=== PATIENT | female | born 1995 | race Caucasian/White ===

== ENCOUNTER 2018-08-13 11:39 | Emergency (ER) | payer OTHER ==
[2018-08-13 11:43] VITALS: TEMP 98.5; BMI 22.8
--- NOTE | 2018-08-13 12:01 | PDOC ---
Attending Attestation - Resident Resident Name: José Miguel Allen - ED Attending Attestation I have performed the following: I have examined & evaluated the patient, The case was reviewed & discussed with the resident, I agree w/resident's findings & plan, Exceptions are as noted - HPI HPI: 08/13/18 11:59 22y F present with abdominal pain that radiates across the abd and to the back. The pain is eposidic, and comes in waves, lasting fora bout a minute at a time. Pt notse the pain started on sunday in the lower abdomen and made her nauesus, and she vomited and had a bowel movement wtih resolution of the symptoms until sunday, since then the pain has come and gone intermittently. Pt notes the pain is diffuse across her lower abdomen, but does seem slightly worse in the llq. Sems to worsen when she eats or drinks. Pt notse nbnb vomiting, denies any diarrhea, melena, bpr. pt does note some mild dysuria/frequency. no associated fever or chills. no known sick contacts. 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 HEAD: Normocephalic, atraumatic. EYES: extraocular movements intact, sclera anicteric, conjunctiva clear. ENT: Normal voice, Moist mucous membranes. NECK: Normal range of motion, supple LUNGS: Breath sounds equal, clear to auscultation bilaterally. No wheezes, no rhonchi, no rales. HEART: Regular rate and rhythm, without murmur, rub or gallop. ABDOMEN: Soft, nontender, No guarding, no rebound.No CVA tenderness EXTREMITIES: Normal range of motion, no edema. NEUROLOGICAL: No facial assymetry, Normal speech, moving all 4 extremities spontaneously and symmetrically PSYCH: Normal mood, normal affect. SKIN: Warm, Dry, normal turgor, - Medical Decision Making 08/13/18 12:44 ddx - kidney stones, gastroenteritis, consider ovarian torsion, cysts, , ectopic will ck labs will give pain meds/nausea meds will reassess
[2018-08-13] MEDS ORDERED: SODIUM CHLORIDE 1,000 ML IV STA (12:11)
[2018-08-13] MEDS ORDERED: ACETAMINOPHEN 500 MG TABLET (FP) PO ONE (12:11)
[2018-08-13 12:39] LABS: HCG,QUALITATIVE URINE Negative
[2018-08-13] MEDS ORDERED: ACETAMINOPHEN 500 MG TABLET (FP) ONE (12:43)
[2018-08-13 12:46] LABS: URINE APPEARANCE Clear; URINE BILIRUBIN Negative (NEGATIVE); URINE COLOR Yellow; URINE GLUCOSE (UA) Negative (NEGATIVE); URINE KETONE Negative (NEGATIVE); URINE LEUK ESTERASE Negative (NEGATIVE); URINE NITRITE Negative (NEGATIVE); URINE PROTEIN Trace (NEGATIVE); URINE UROBILINOGEN 0.2 (0.2-1.0)
--- NOTE | 2018-08-13 12:46 | PDOC ---
History of Present Illness - General Chief Complaint: Pain, Acute Stated Complaint: ABD PAIN Time Seen by Provider: 08/13/18 11:46 History Source: Patient Exam Limitations: No Limitations - History of Present Illness Initial Comments: 08/13/18 12:33 22 yo female pmh of hypothyroidism, polycystic kidney disease, possible kidney stone on ultrasound, IUD removal 2 months ago with normal menstrual periods (on OCPs now, LMP Sunday) presents to the ED with 3 days of abdominal and back pain. Pt states the pain started suddenly and has been waxing and waning in intensity, described as sharp and stabbing, not well localized but denies radiation. Pt did not take anything for her pain. Admits to average of 2 loose stools a day since Sunday without blood, nausea without vomiting and burning and increased frequency of urination. Denies F/C, swelling, CP or SOB. 08/13/18 15:08 Pt denies vaginal discharge, has only had 1 sexual partner over the last 1 year. Does admit to having trich and chlamydia many years ago with treat and no complications. Past History - Past Medical History Allergies/Adverse Reactions: Allergies Allergy/AdvReac Type Severity Reaction Status Date / Time No Known Allergies Allergy Verified 08/13/18 11:40 Home Medications: Ambulatory Orders Escitalopram Oxalate [Lexapro -] 5 mg PO DAILY 10/04/16 Control 08/13/18 COPD: No Thyroid Disease: Yes Other medical history: POLYCYSTIC KID DZ - Suicide/Smoking/Psychosocial Hx Smoking History: Never smoked Have you smoked in the past 12 months: No Number of Cigarettes Smoked Daily: 0 Hx Alcohol Use: No Drug/Substance Use Hx: No Substance Use Type: None Review of Systems - Review of Systems Constitutional: No: Chills, Fever Respiratory: No: Shortness of Breath Cardiac (ROS): No: Chest Pain ABD/GI: Yes: Nausea, Other (2 loose stools a day for 3 days). No: Constipated, Vomiting : Yes: Burning, Dysuria, Frequency, Flank Pain. No: Hematuria Musculoskeletal: Yes: Back Pain (bilateral mid back pain). No: Muscle Weakness *Physical Exam - Vital Signs Last Vital Signs Temp Pulse Resp BP Pulse Ox 98.5 F 88 16 140/104 H 99 08/13/18 11:39 08/13/18 11:39 08/13/18 11:39 08/13/18 11:39 08/13/18 11:39 - Physical Exam General Appearance: Yes: Nourished, Appropriately Dressed. No: Apparent Distress HEENT: positive: EOMI Respiratory/Chest: positive: Lungs Clear, Normal Breath Sounds. negative: Crackles, Wheezing Cardiovascular: positive: Regular Rhythm, Regular Rate, S1, S2. negative: Edema , JVD, Murmur Vascular Pulses: Dorsalis-Pedis (R): 3+, Doralis-Pedis (L): 3+ Female Pelvic Exam: positive: normal external exam, cervical os closed, normal adnexa. negative: CMT, discharge, lesions, adnexal tenderness, vaginal bleeding Gastrointestinal/Abdominal: positive: Normal Bowel Sounds, Flat, Soft, Tenderness (suprapubic and bilateral CVA. Abdomen mild difuse tenderness). negative: Pulsatile Mass, Distended, Guarding, Rebound Musculoskeletal: positive: Normal Inspection Extremity: positive: Normal Capillary Refill Integumentary: positive: Normal Color, Dry, Warm Neurologic: positive: Fully Oriented, Alert, Normal Mood/Affect, Normal Response Medical Decision Making - Medical Decision Making 08/13/18 14:03 22 yo female pmh PCKD and kidney stone presents to the ED with diffuse abdominal pain and back pain with increased freq and burning on urination. Vitals stable Well appearing AOX3 Exam: heart and lungs normal abdomen soft non distended, no guarding/rebound, negative murphys. Positive bilateral CVA and suprapubic tenderness CBC and CMP normal Trace blood on UA. abdomen pelvis spiral CT ordered DDX: kidney stone, ruptured cyst on kidney, ovarian cyst 08/13/18 15:[address] shows stone in the kidney unlikely causing pts pain pelvic exam normal (see PE) with GC and CHL done *DC/Admit/Observation/Transfer Diagnosis at time of Disposition: Abdominal pain Qualifiers: Abdominal location: left upper quadrant Qualified Code(s): R10.12 - Left upper quadrant pain - Discharge Dispostion Disposition: HOME Condition at time of disposition: Stable Decision to Admit order: No - Referrals Referrals: Pancho Gruber [Other] - Patient Instructions Printed Discharge Instructions: DI for Abdominal Pain-Adult Additional Instructions: Please follow up with your primary care doctor within the next 2 days and discuss your visit. Please return to the Emergency Room for new or worsening symptoms including but not limited to: high fevers, nausea, vomiting, persistent pain not improving with medications, vaginal bleeding or discharge. Please take over the counter Motrin for pain as needed and as directed on the box. Thank you - Post Discharge Activity
[2018-08-13 12:48] LABS: BASO % 0.4 % (0-2.0); HEMATOCRIT 38.4 % (32.4-45.2); HEMOGLOBIN 12.8 GM/dl (10.7-15.3); LYMPH % 31.5 % (8-40); MCH 28.4 pg (25.7-33.7); MCHC 33.3 g/dl (32.0-36.0); MEAN CELL VOLUME 85.4 fl (80-96); MEAN PLT VOLUME 8.7 fl (7.5-11.1); MONO % 6.5 % (3.8-10.2); NEUT % 60.6 % (42.8-82.8); PLATELET COUNT 270 K/MM3 (134-434); RDW 11.7 % (11.6-15.6); WHITE BLOOD COUNT 6.3 K/mm3 (4.0-10.8)
[2018-08-13 12:56] LABS: ALBUMIN 4.2 g/dl (3.5-5.0); ALK PHOS 55 U/L (32-92); ANION GAP 4 MMOL/L (8-16); BILIRUBIN,TOTAL 0.8 mg/dl (0.2-1.0); BLOOD UREA NITROGEN 15 mg/dl (7-18); CALCIUM 9.1 mg/dl (8.4-10.2); CHLORIDE 103 mmol/L (98-107); CO2 26 mmol/L (22-28); CREATININE 0.7 mg/dl (0.6-1.3); GLUCOSE,RANDOM 96 mg/dl (74-106); POTASSIUM 3.3 mmol/L (3.5-5.1); SGOT/AST 18 U/L (10-42); SGPT/ALT 15 U/L (10-40); SODIUM 133 mmol/L (136-145); TOT PROT 7.2 g/dl (6.4-8.3)
[2018-08-13 13:42] LABS: AMORP URATES NONE SEEN /hpf (NONE SEEN); EPI CELLS 1+ /HPF; URINE BACTERIA 1+ /hpf (NEGATIVE)
[2018-08-13] MEDS ORDERED: KETOROLAC TROMETHAMINE 30 MG/1 ML VIAL IVPUSH ONE (14:12)
[2018-08-13] MEDS ORDERED: KETOROLAC TROMETHAMINE 30 MG/1 ML VIAL ONE (14:23)
[2018-08-13 14:42] LABS: LIPASE 119 U/L (73-393)
[2018-08-13 15:43] VITALS: BP 117/65; PULSE 83
== END 2018-08-13 16:05 | disposition home or self-care (01) ==
LOC: FER 11:39
PROC: 3E0333Z Introduction of Anti-inflammatory into Peripheral Vein, Percutaneous Approach (ICD-10-PCS; principal; 2018-08-13)
PROC: 3E0337Z Introduction of Electrolytic and Water Balance Substance into Peripheral Vein, Percutaneous Approach (ICD-10-PCS; 2018-08-13)
DX: R10.12 Left upper quadrant pain (principal)
CPT/HCPCS: 36415; 74176; 76830-TC; 80053; 81003; 81015; 83690; 84703; 85025; 87086; 87110; 96361; 96374; 99283-25; J7030